=== PATIENT | male | born 1960 | race American Indian/Alaskan Native ===

== ENCOUNTER 2016-05-05 13:41 | Outpatient (CLI) | payer OTHER ==
--- NOTE | 2016-05-06 09:47 | Cat Scan Report ---
CT CHEST, ABDOMEN AND PELVIS WITH CONTRAST: 05/05/16 13:41:00 CLINICAL: History of small bowel leiomyosarcoma. COMPARISON: 11/27/15 TECHNIQUE: Volumetric acquisition and 1.25 millimeter scan reconstructions after the uneventful intravenous injection of 100 cc of Omnipaque 300. Consent was obtained prior to the administration of the contrast. Oral contrast was also given. FINDINGS: Chest: The lungs are clear. No pulmonary nodule or mass. No pleural effusion. Normal aorta, heart and pulmonary arteries. Normal thyroid, esophagus and trachea. No mediastinal or hilar lymphadenopathy.No axillary or supraclavicular lymphadenopathy. Abdomen: Normal liver, gallbladder and bile ducts. Normal stomach, duodenum, pancreas and spleen. Normal small bowel with a normal anastomosis to the left of midline just superior to the umbilicus. No intraperitoneal or retroperitoneal lymphadenopathy. Normal adrenal glands. The kidneys are normal except for a few tiny bilateral cysts. The largest is in the midportion of the left kidney and measures 1 cm. The renal collecting systems and ureters are nondilated. Normal aorta and inferior vena cava. No ascites. Normal ascending, transverse and descending colon. The appendix is well imaged and normal. Pelvis: Normal urinary bladder, prostate, seminal vesicles and rectum.Normal sigmoid colon. Bone windows demonstrate no suspicious bone lesion. IMPRESSION:1. Negative chest, abdomen and pelvis with no evidence of disease recurrence or metastasis. 2. Status post partial small bowel resection with a normal anastomosis.
== END 2016-05-05 13:42 | disposition home or self-care (01) ==
LOC: SPVIMAG 13:41
PROVIDERS: ATTEND Internal Medicine Hematology & Oncology
DX: C71.9 Malignant neoplasm of brain, unspecified (principal); N28.1 Cyst of kidney, acquired; K63.89 Other specified diseases of intestine
CPT/HCPCS: 71260; 74177; 82962; Q9967